=== PATIENT | male | born 1990 | race Caucasian/White ===

== ENCOUNTER 2020-04-13 09:26 | Emergency (ER) | payer SELFPAY ==
[2020-04-13 09:42] VITALS: BP 110/71; PULSE 62; RESP 16; TEMP 36.7; O2SAT 99; BMI 21.7
[2020-04-13 09:51] VITALS: BP 110/71; PULSE 62; RESP 16; O2SAT 99
--- NOTE | 2020-04-13 10:05 | ED_ITS ---
HPI - Extremity Problem General: Chief complaint: Extremity Problem,Nontraumatic Stated complaint: HAND AND RIGHT SHOULDER PAIN Time Seen by Provider: 04/13/20 09:32 History of Present Illness: HPI Narrative: Patient presents to the ER with multiple minor complaints. Patient states for a long period of time he has had pain with occasional shocklike tingling to both hands and wrists. MD Complaint: extremity pain and joint pain Onset (ago): month(s) Pain Consistency: intermittent Location: left, right and upper extremity Review of Systems General: Reports: 10 or more systems reviewed and unremarkable except in HPI and below PFSH ED PFSH: Social History Smoking and tobacco status: current every day smoker Physical Exam Const: COMMON NORMALS: no acute distress, average body habitus, alert and well nourished EXAM LIMITATIONS: altered mental status GENERAL APPEARANCE: cooperative and comfortable; not in distress and not ill appearing HENMT: COMMON NORMALS: normocephalic, atraumatic, hearing grossly normal bilaterally, external ears normal, EAC's normal, TM's normal bilaterally, Normal external nose present, Normal nasal mucous membranes and turbinates present, moist oral mucous membranes, oropharynx normal, dentition normal and gingiva normal HEAD & SCALP: normocephalic and atraumatic NOSE: Normal external nose present and Normal nasal mucous membranes and turbinates present EXTERNAL EAR: Yes external ears normal EXTERNAL AUDITORY CANAL: EAC's normal TYMPANIC MEMBRANE: TM's normal bilaterally Eye: COMMON NORMALS: Equal, round and reactive pupils present, EOMs intact bilaterally, conjunctivae normal, no scleral icterus, no papilledema, normal visual wayne by confrontation and fundi normal bilaterally CONJUNCTIVA: Yes conjunctivae normal PUPIL: Yes Equal, round and reactive pupils present DIRECT OPHTHALMOSCOPY: Yes no papilledema and Yes fundi normal bilaterally Neck/C-Spine: COMMON NORMALS: full ROM, no lymphadenopathy, supple, no meningeal signs, no JVD, Thyroid normal and No carotid bruits THYROID: Thyroid normal Chest: COMMONS NORMALS: normal inspection of the chest and normal palpation of entire chest wall Resp: COMMON NORMALS: normal respiratory effort, No retractions, No use of accessory muscles, clear to auscultation bilaterally and percussion normal AUSCULTATION: clear to auscultation bilaterally PERCUSSION: percussion normal Cardio: COMMON NORMALS: no JVD, regular rate, regular rhythm, S1 normal heart sound present, S2 normal heart sound present, No gallops present (Cardio), No clicks present (Cardio), No murmurs present (Cardio), No rub (Cardio) and Peripheral pulses 2+ throughout RATE: regular rate RHYTHM: regular rhythm HEART SOUNDS: S1 normal heart sound present and S2 normal heart sound present PERIPHERAL PULSES: Peripheral pulses 2+ throughout GI: COMMON NORMALS: Normal to inspection, nondistended, normoactive bowel sounds present, Soft to palpation, non-tender, No hepatosplenomegaly present, no masses and no bruits PALPATION: Yes Soft to palpation and Yes No hepatosplenomegaly present Back/Pelvis: COMMON NORMALS: thoracic and lumbar spine normal to inspection, no thoracic nor lumbar tenderness, thoraco-lumbar ROM normal and straight leg raise negative bilaterally Extremity: COMMON NORMALS: normal to inspection, full ROM, capillary refill normal, no joint enlargement, no clubbing, cyanosis or edema, no calf tenderness and no pedal edema Neuro: SENSORIUM/ORIENTATION: Yes alert and Yes somnolent MENINGEAL SIGNS: Yes no meningeal signs Skin: COMMON NORMALS: no rashes or lesions noted, no wounds, no jaundice and no mottling GENERAL SKIN EXAM: no rashes or lesions noted Course Vital Signs: Vital signs: Vital Signs Temperature 98.0 F 04/13/20 09:42 Pulse Rate 62 04/13/20 09:51 Respiratory Rate 16 04/13/20 09:51 Blood Pressure 110/71 04/13/20 09:51 Pulse Oximetry 99 04/13/20 09:51 Discharge Plan Discharge Patient Disposition: Home, Self-Care Clinical Impression: Carpal tunnel syndrome Qualifiers: Laterality: bilateral Qualified Code(s): G56.03 - Carpal tunnel syndrome, bilateral upper limbs Condition: Stable Prescriptions: No Action Tylenol Extra Strength 500 mg Tablet 1,500 mg PO PRN RF: 0 Discharge Orders: Discharge Order (Routine); Ordered 04/13/20 Ordered By: Андрей Stanley Coding Level of Care Code ED Metal Tube Cutter for Chg Fwd Exam Comprehensive
== END 2020-04-13 10:22 | disposition home or self-care (01) ==
PROVIDERS: Emergency Provider Family Medicine
DX: G56.03 Carpal tunnel syndrome, bilateral upper limbs (principal); F17.210 Nicotine dependence, cigarettes, uncomplicated
CPT/HCPCS: 12345; 99281

== ENCOUNTER 2020-09-28 03:50 | Emergency (ER) | payer SELFPAY ==
[2020-09-28 03:54] VITALS: BP 139/83; PULSE 62; RESP 16; TEMP 36.5; O2SAT 100; BMI 21.7
--- NOTE | 2020-09-28 04:13 | ED_ITS ---
HPI - Extremity Problem General: Chief complaint: Extremity Injury, Upper Stated complaint: lt hand pain Time Seen by Provider: 09/28/20 04:01 History of Present Illness: HPI Narrative: This patient is a 30 year old male presenting with left hand pain. He is left handed and works at a [employer] He doesn't recall any injury. He has been having pain for 3 or 4 days - worse at night. This morning the pain woke him up at 3 am and he hasn't been able to go back to sleep. He has been taking advil without relief. The pain in a burning type pain and he feels it around the area of the middle of the second metacarpal bone. He also has numbness in his entire hand and forearm - with shooting pains up to his shoulder. No specific movement or position worsens the pain. MD Complaint: extremity pain Onset (ago): day(s) (4) Pain Consistency: constant Location: left Quality: burning, aching and sharp Radiation: proximal Relieving factors: nothing Exacerbating factors: nothing Associated symptoms: Reports no associated symptoms; Deny chest pain Review of Systems Card: Denies: chest pain Resp: Denies: dyspnea or productive cough Neuro: Reports: numbness in extremities; Denies: headache(s) PFS ED PFSH: Social History Smoking and tobacco status: current every day smoker Physical Exam Const: COMMON NORMALS: no acute distress, patient oriented x3, no limitations and alert GENERAL APPEARANCE: cooperative and comfortable HENMT: HEAD & SCALP: normal to inspection FACE & SINUS: normal facial exam Eye: GENERAL EYE: appearance normal, both eyes and all related structures Neck/C-Spine: COMMON NORMALS: supple, no meningeal signs and no JVD Chest: COMMONS NORMALS: normal inspection of the chest Resp: COMMON NORMALS: normal respiratory effort and No use of accessory muscles Cardio: COMMON NORMALS: no JVD Back/Pelvis: COMMON NORMALS: thoracic and lumbar spine normal to inspection Extremity: COMMON NORMALS: normal to inspection NARRATIVE EXTREMITY EXAM: left hand normal to inspection - FROM, neuro intact, pulses intact Neuro: COMMON NORMALS: patient oriented x3, moves all extremities, no focal motor deficits and no sensory deficits noted SENSORIUM/ORIENTATION: Yes alert MENINGEAL SIGNS: Yes no meningeal signs Psych: COMMON NORMALS: mental status grossly normal, cooperative and normal affect Skin: COMMON NORMALS: no rashes or lesions noted and turgor normal GENERAL SKIN EXAM: no rashes or lesions noted and turgor normal Course ED course: No clear injury to the hand. I suspect this could be a cervical radiculopathy and I will treat him with some steroids. We will also give him a short course of tramadol for pain. I have asked case management to help him with primary care follow-up. Vital Signs: Vital signs: Vital Signs Temperature 97.7 F 09/28/20 03:54 Pulse Rate 69 09/28/20 04:58 Respiratory Rate 16 09/28/20 03:54 Blood Pressure 124/85 09/28/20 04:58 Pulse Oximetry 100 09/28/20 04:58 Discharge Plan Discharge Patient Disposition: Home Clinical Impression: Hand pain, left Condition: Stable Prescriptions: New Medrol (Wilber) 4 mg tablets,dose pack See Rx Instructions .ROUTE .COMPLEX Qty: 21 RF: 0 tramadol 50 mg tablet 50 mg PO Q6H PRN (Reason: pain) Qty: 10 RF: 0 No Action Tylenol Extra Strength 500 mg Tablet 1,500 mg PO PRN RF: 0 Discharge Orders: Discharge Order (Routine); Ordered 09/28/20 Ordered By: Tana Baldwin Discharge Diet: Usual diet Discharge Activity: Resume usual activity Patient Instructions: Cervical Radiculopathy (ED) Activity Restrictions/Additional Instructions: Follow up with a primary care provider for further evaluation and management of your pain. Return to the ED if new or worse symptoms. Coding Level of Care Code ED Contractor General Building for Meliza Molina Exam Comprehensive
--- NOTE | 2020-09-28 04:13 | XRR_ITS ---
PROCEDURE INFORMATION: Exam: XR Left Hand Exam date and time: 09/28/2020 4:22 AM Age: 30 years old Clinical indication: Pain; Hand; Left TECHNIQUE: Imaging protocol: XR Left hand. Views: 3 or more views. COMPARISON: CR Hand 3 views, LEFT* [id number] 10/06/2019 8:48 PM FINDINGS: Bones/joints: No acute fracture or dislocation is seen. A chronic fracture of the neck of the 5th metacarpal is present.. Soft tissues: Normal. XR/XR hand LT min 3V* [id number] IMPRESSION: No acute findings.
[2020-09-28 04:33] VITALS: BP 124/85; PULSE 62; PULSE 68; O2SAT 99
[2020-09-28] MEDS: predniSONE 20 mg Tablet 40 MG PO (04:57)
[2020-09-28] MEDS: acetaminophen 500 mg Tablet 1000 MG PO (04:57)
[2020-09-28 04:58] VITALS: BP 124/85; PULSE 69; O2SAT 100
--- NOTE | 2020-10-03 14:49 | DCPLANNER ---
market research manager had message to speak with patient about getting established with a primary care physician. market research manager called phone number [phone], unable to speak with patient at this time, a voicemail was left for patient to return case worker phone call.
== END 2020-09-28 04:59 | disposition home or self-care (01) ==
PROVIDERS: Emergency Provider Emergency Medicine
DX: M79.642 Pain in left hand (principal); F17.210 Nicotine dependence, cigarettes, uncomplicated
CPT/HCPCS: 12345; 73130; 99281; 99283; J7512

== ENCOUNTER 2021-02-26 07:08 | Emergency (ER) | payer SELFPAY ==
[2021-02-26 07:10] VITALS: BP 136/88; PULSE 67; RESP 18; TEMP 36.7; O2SAT 100; BMI 21.7
--- NOTE | 2021-02-26 07:16 | ED_ITS ---
Documented by User: JESSICA Harrison 02/26/21 08:51 HPI - Skin/Abscess/Foreign Bdy General: Chief complaint: Skin/Abscess/Foreign Body Stated complaint: Cyst/Growth Time Seen by Provider: 02/26/21 07:09 Source: patient Mode of arrival: ambulatory Limitations: no limitations History of Present Illness: HPI narrative: Patient is a 30-year-old male who presents to ED today with complaints of a lump near his left testicle/scrotum. He states the lump has been present for about two years and is normally the size of the tip of his pinky finger and non-painful however over the last few days lesion has gotten much larger, is now red, and is becoming uncomfortable. No penile discharge or dysuria. He has not noticed any testicular swelling or pain. No rash/skin lesions. Patient is and monogamous with his . He has no concerns for STDs. MD complaint: other (lump) Onset (ago): day(s) Location: genitals Severity: mild Relieving factors: none Exacerbating factors: none Context: none Associated symptoms: Reports no associated symptoms; Deny chills, fever(s), nausea or vomiting Treatments prior to arrival: none Review of Systems Const: Denies: fever(s), chills, body aches, fatigue or malaise GI: Denies: abdominal pain, nausea or vomiting : Reports: testicular mass; Denies: flank pain, difficulty urinating, dysuria, urinary frequency, urinary urgency, urinary hesitancy, hematuria, penile discharge or testicular pain Musc: Denies: back pain Skin/Breast: Denies: rash PFS ED PFSH: Social History Smoking and tobacco status: current every day smoker Physical Exam Const: COMMON NORMALS: no acute distress, average body habitus, patient oriented x3, no limitations, healthy appearing, alert and well nourished GI: COMMON NORMALS: Normal to inspection, nondistended, normoactive bowel sounds present, Soft to palpation, non-tender, No hepatosplenomegaly present and no masses PALPATION: Yes Soft to palpation and Yes No hepatosplenomegaly present : PENIS: normal penis MEATUS: meatus normal SCROTUM: Yes testes descended bilaterally TESTES: Yes testicular lie normal Neuro: COMMON NORMALS: patient oriented x3 SENSORIUM/ORIENTATION: Yes alert Course Vital Signs: Vital signs: Vital Signs Temperature 98.1 F 02/26/21 07:10 Pulse Rate 74 02/26/21 07:25 Respiratory Rate 18 02/26/21 07:10 Blood Pressure 131/78 02/26/21 07:25 Pulse Oximetry 99 02/26/21 07:25 MDM - Skin/Abscess/Foreign Bdy MDM Narrative: Medical decision making narrative: Pts US does show a fluid collection that radiologist felt was possibly an abscess however based on patient's history I feel this is probably unlikely. Area has been present for over two years however has acutely worsened. Clinically fluid collection is lateral to his epididymis-I spoke to Dr. Carter and she felt this was just being displaced by the fluid collection and did not appear to be directly involved. At this point I am hesitant about performing any type of procedure to the fluid collection based on its chronicity. I have spoken to Dr. Walter who agrees that he would not attempt any form of I&D. We agreed that we will cover patient with IM Rocephin and place on Doxycycline and will get him a follow up appointment with Dr. Stovall. Return to ED precautions given. Patient is not tachycardic or febrile. Imaging Data^: US testicular : Radiologist's impression: [address] [place] [address] Ultrasound Report Signed Patient: Jimmy Lazcano Unit #: [id number] : 1990 Age/Sex: 30 / M ADM Date: 02/26/21 Loc: ER Room/Bed: Attending Dr: Ordering Provider/Ordering MD: Natasha Quevedo Date of Service: 02/26/21 Procedure(s): US scrotum 75747 Accession Number(s): [id number] Report Number: [id number] WS: [id number] TESTICULAR ULTRASOUND HISTORY: lump/mass COMPARISON: None available. TECHNIQUE: Real-time and color Doppler imaging or utilized to perform a testicular ultrasound. Right testicle: 4.2 cm x 2.5 cm x 1.9 cm. Normal size and echogenicity. No mass or torsion. Normal color Doppler is present throughout. Systolic and diastolic velocities are both present. No significant hydrocele. Right epididymis: Normal epididymis with no increased vascularity. Left testicle: 3.4 cm x 2.2 cm x 1.8 cm. Normal size and echogenicity. No mass or torsion. Normal color Doppler is present throughout. Systolic and diastolic velocities are both present. No significant hydrocele. Left epididymis: Epididymis is very enlarged. Adjacent to the epididymis is a complex collection with marked increased vascularity measuring 2.0 x 2.5 x 1.3 cm. This corresponds to the palpable abnormality. The epididymis is closely associated with this inflammatory collection and is being slightly displaced. US/ scrotum [id number] IMPRESSION: 1. LEFT scrotal wall abscess versus LEFT epididymal abscess. Abscess collection measures 2.0 x 2.5 x 1.3 cm and corresponds to the palpable abnormality. 2. No orchitis. Dictated By: Annemarie Carter DO Signed By: Annemarie Carter DO Signed Date/Time: 02/26/21818 DD/ 8 Discharge Plan Discharge Patient Disposition: Home Clinical Impression: Lump in scrotum Condition: Stable Prescriptions: New doxycycline monohydrate 100 mg capsule 100 mg PO Q12H 10 Days Qty: 20 RF: 0 No Action Tylenol Extra Strength 500 mg Tablet 1,500 mg PO PRN RF: 0 Medrol (Wilber) 4 mg tablets,dose pack See Rx Instructions .ROUTE .COMPLEX Qty: 21 RF: 0 tramadol 50 mg tablet 50 mg PO Q6H PRN (Reason: pain) Qty: 10 RF: 0 Discharge Orders: Discharge ED (Routine); Ordered 02/26/21 Ordered By: Natasha Quevedo Referrals: Owen Stovall MD [Physician] - Activity Restrictions/Additional Instructions: Fill your antibiotics immediately and get started taking them. Case management should contact you shortly to set you up with a follow-up appointment with Dr. Stovall. Return to the emergency department for worsening swelling, pain, spreading redness/warmth, fevers, or any other concerns you may have. Coding Level of Care Code ED Upholsterer Inside for Chg Fwd Exam Expanded Problem Focused Documented by User: Isacc Walter DO 02/26/21 10:18 HPI - Skin/Abscess/Foreign Bdy General: Chief complaint: Skin/Abscess/Foreign Body Stated complaint: Cyst/Growth Time Seen by Provider: 02/26/21 07:09 PFSH ED PFSH: Social History Smoking and tobacco status: current every day smoker Course Vital Signs: Vital signs: Vital Signs Temperature 98.1 F 02/26/21 07:10 Pulse Rate 74 02/26/21 07:25 Respiratory Rate 18 02/26/21 07:10 Blood Pressure 131/78 02/26/21 07:25 Pulse Oximetry 99 02/26/21 07:25 MDM - Skin/Abscess/Foreign Bdy MDM Narrative: Medical decision making narrative: Reviewed and discussed case with JESSICA Harrison agree with assessment and plan. Discharge Plan Discharge Patient Disposition: Home Clinical Impression: Lump in scrotum Condition: Stable Prescriptions: New doxycycline monohydrate 100 mg capsule 100 mg PO Q12H 10 Days Qty: 20 RF: 0 No Action Tylenol Extra Strength 500 mg Tablet 1,500 mg PO PRN RF: 0 Medrol (Wilber) 4 mg tablets,dose pack See Rx Instructions .ROUTE .COMPLEX Qty: 21 RF: 0 tramadol 50 mg tablet 50 mg PO Q6H PRN (Reason: pain) Qty: 10 RF: 0 Discharge Orders: Discharge ED (Routine); Ordered 02/26/21 Ordered By: Natasha Quevedo Referrals: Owen Stovall MD [Physician] - Activity Restrictions/Additional Instructions: Fill your antibiotics immediately and get started taking them. Case management should contact you shortly to set you up with a follow-up appointment with Dr. Stovall. Return to the emergency department for worsening swelling, pain, spreading redness/warmth, fevers, or any other concerns you may have. Coding Level of Care Code ED Upholsterer Inside for Chg Fwd Exam Expanded Problem Focused
--- NOTE | 2021-02-26 07:23 | US_ITS ---
WS: [id number] TESTICULAR ULTRASOUND HISTORY: lump/mass COMPARISON: None available. TECHNIQUE: Real-time and color Doppler imaging or utilized to perform a testicular ultrasound. Right testicle: 4.2 cm x 2.5 cm x 1.9 cm. Normal size and echogenicity. No mass or torsion. Normal color Doppler is present throughout. Systolic and diastolic velocities are both present. No significant hydrocele. Right epididymis: Normal epididymis with no increased vascularity. Left testicle: 3.4 cm x 2.2 cm x 1.8 cm. Normal size and echogenicity. No mass or torsion. Normal color Doppler is present throughout. Systolic and diastolic velocities are both present. No significant hydrocele. Left epididymis: Epididymis is very enlarged. Adjacent to the epididymis is a complex collection with marked increased vascularity measuring 2.0 x 2.5 x 1.3 cm. This corresponds to the palpable abnormal ity. The epididymis is closely associated with this inflammatory collection and is being slightly dis placed. US/US scrotum [id number] IMPRESSION: 1. LEFT scrotal wall abscess versus LEFT epididymal abscess. Abscess collectio n measures 2.0 x 2.5 x 1.3 cm and corresponds to the palpable abnormality. 2. No orchitis.
[2021-02-26 07:25] VITALS: BP 131/78; PULSE 74; O2SAT 99
--- NOTE | 2021-02-26 09:58 | DCPLANNER ---
manager social was asked to schedule a follow up appointment for patient with Dr. Stovall. manager social called the office of Dr. Stovall, spoke with Kaelyn, gave clinic patients information. manager social was told that patients information would be printed and reviewed. Clinic will call patient with appointment information.
--- NOTE | 2021-02-27 08:16 | DCPLANNER ---
Patient has a follow up appointment scheduled for Saturday, February 27, [address] at 9:[address] Stovall. Clinic will call patient with appointment information.
--- NOTE | 2021-04-19 14:42 | DCPLANNER ---
Patient had a follow up appointment scheduled for 02.27.[address] Stovall - patient did attend appointment.
== END 2021-02-26 09:25 | disposition home or self-care (01) ==
PROVIDERS: Emergency Provider Physician Assistant
DX: N50.9 Disorder of male genital organs, unspecified (principal); F17.210 Nicotine dependence, cigarettes, uncomplicated
CPT/HCPCS: 76870; 96372; 99283; J0696

== ENCOUNTER 2021-08-28 07:16 | Emergency (ER) | payer SELFPAY ==
--- NOTE | 2021-08-28 07:18 | XR_ITS ---
WS: [id number] Exam: XR hand LT min 3V* [id number] Date/Time of Exam: 08/28/2021 7:27 AM Reason For Exam: index finger injury comparison 09/28/2020 No acute fracture or dislocation. Old fracture deformity of the distal fifth metacarpal. No soft tiss ue foreign bodies are visualized. Mild soft tissue swelling of the index finger. XR/XR hand LT min 3V* [id number] IMPRESSION: 1. No fracture or dislocation. 2. Mild soft tissue swelling of the index finger.
[2021-08-28 07:34] VITALS: BP 123/84; PULSE 86; RESP 17; TEMP 37.1; O2SAT 99; BMI 21.7
--- NOTE | 2021-08-28 07:35 | W.ED.UPPEXIN ---
HPI - Extremity Injury (Upper) General: Chief Complaint: Extremity Injury, Upper Stated Complaint: L INDEX FINGER INJURY Time Seen by Provider: 08/28/21 07:26 History of Present Illness: HPI narrative: Patient is a 31-year-old male who comes to the ED with a left index finger injury. complaint: injury to: left and finger (index) Onset (ago): day(s) (yesterday-late afternoon) Other injuries: none Place: work Severity: moderate Relieving factors: rest Exacerbating factors: movement of extremity Context: crush (Piece of lumber fell crushing patient's finger between lumbar and table.) Associated symptoms: Denies neck pain or weakness in extremities Review of Systems Const: Denies: fever(s), chills or fatigue Eyes: Denies: change in vision or eye discomfort ENMT: Denies: throat pain, odynophagia, nasal discharge or nasal congestion Card: Denies: chest pain, palpitations, edema, swelling of feet/ankles, dyspnea on exertion or orthopnea Resp: Denies: dyspnea, productive cough or non-productive cough GI: Denies: abdominal pain, nausea, vomiting, diarrhea, constipation or hematochezia : Denies: flank pain, difficulty urinating, dysuria or hematuria Musc: Reports: extremity pain (left hand index finger) and extremity swelling (left hand-index finger); Denies: neck pain or back pain Skin/Breast: Denies: rash or new lesions Neuro: Denies: headache(s), numbness in extremities or weakness in extremities PFS ED PFSH: Medical History Scrotal wall abscess Family History Father Hypertension Other Diabetes Social History Smoking and tobacco status: current every day smoker Alcohol intake: current Alcohol intake frequency: holidays/special occasions only Marital status: Current occupational status: employed Physical Exam Const: COMMON NORMALS: no acute distress, patient oriented x3, healthy appearing and alert GENERAL APPEARANCE: cooperative and comfortable HENMT: COMMON NORMALS: normocephalic HEAD & SCALP: normocephalic MOUTH: Normal oral and palatal mucosa present THROAT: posterior oropharynx normal and uvula midline Neck/C-Spine: COMMON NORMALS: supple GENERAL: Yes normal visual inspection Resp: COMMON NORMALS: normal respiratory effort, No retractions, No use of accessory muscles and clear to auscultation bilaterally AUSCULTATION: clear to auscultation bilaterally Cardio: COMMON NORMALS: regular rate, regular rhythm, S1 normal heart sound present, S2 normal heart sound present, No gallops present (Cardio), No clicks present (Cardio), No murmurs present (Cardio) and Peripheral pulses 2+ throughout RATE: regular rate RHYTHM: regular rhythm HEART SOUNDS: S1 normal heart sound present and S2 normal heart sound present PERIPHERAL PULSES: Peripheral pulses 2+ throughout GI: COMMON NORMALS: Normal to inspection, nondistended, normoactive bowel sounds present, Soft to palpation, non-tender and no masses PALPATION: Yes Soft to palpation : COMMON NORMALS: Yes no CVA tenderness BLADDER/KIDNEY EXAM: Yes no CVA tenderness Back/Pelvis: COMMON NORMALS: no CVA tenderness Extremity: LEFT UPPER EXTREMITY: Yes hand & digits (Index [id number] nailbed injury) Left hand and digits: Yes inspection (Swelling around PIP joint of index finger. No deformity noted), Yes palpation (Tenderness over PIP joint of index finger), Yes ROM (Limited due to pain) and Yes neurovascular exam (Intact) Neuro: COMMON NORMALS: patient oriented x3 and moves all extremities SENSORIUM/ORIENTATION: Yes alert Skin: GENERAL SKIN EXAM: dry skin Course Vital Signs: Vital signs: Vital Signs Temperature 98.7 F 08/28/21 08:45 Pulse Rate 71 08/28/21 08:45 Respiratory Rate 17 08/28/21 08:45 Blood Pressure 109/72 08/28/21 08:45 Pulse Oximetry 99 08/28/21 08:45 MDM - Extremity Injury (Upper) MDM Narrative: Medical decision making narrative: Patient is a 31-year-old male who comes to the ED with left hand index finger injury. No visible deformity noted. Patient does have some swelling and tenderness around the PIP joint of left hand index finger. No nail damage seen. Neurovascular intact. X-ray of left hand shows index finger proximal and middle phalanx nondisplaced fracture. Patient was put in a finger splint discharged home. I placed order with case management for patient to follow-up with orthopedic for evaluation of finger fracture. Return to ED precautions given. Patient understood and agree with plan. Imaging Data^: Xray Ortho: Attestation: I personally reviewed and interpreted this imaging study as follows: My impression: Left hand x-ray?index finger proximal head middle phalanx nondisplaced fracture. Discharge Plan Discharge Patient Disposition: Home Clinical Impression: Fracture of finger of left hand Qualifiers: Encounter type: initial encounter Finger: index finger Fracture type: closed Phalanx: middle Fracture alignment: nondisplaced Qualified Code(s): S62.651A - Nondisplaced fracture of middle phalanx of left index finger, initial encounter for closed fracture Condition: Stable Prescriptions: No Action sulfamethoxazole-trimethoprim 800-160 mg tablet 1 tab PO BID Qty: 20 RF: 0 Tylenol Extra Strength 500 mg Tablet 1,500 mg PO PRN RF: 0 Discharge Orders: Discharge ED (Routine); Ordered 08/28/21 Ordered By: Reagan Mckeon Discharge Diet: Regular Discharge Activity: Limit activity as instructed Patient Instructions: Finger Fracture (ED), Opioid Safety Activity Restrictions/Additional Instructions: Follow-up with medical provider as directed. Case management will be contacting you in the next several days to set up an appoint with orthopedic doctor. Take medications as prescribed. Wear finger splint and limit activity until cleared by orthopedic doctor. Return to the ER or your medical provider if condition worsens. Please read and understand discharge instructions. Thank you for choosing [facility] for your healthcare needs today. Please realize this is an emergency room and that we are providing you with a medical screening exam and this may not be complete and all inclusive of all the testing and or work up that you may need to determine your ailment or severity of your illness. It is very important that you follow up as instructed or that you return to the Emergency Department should you have concerns or if your condition changes or worsens in any way. Stand Alone Forms: Work/School Release Coding Level of Care Code ED Floor Representative for Meliza Molina Exam Comprehensive
[2021-08-28 07:47] VITALS: BP 129/79; PULSE 75; RESP 17; TEMP 36.7; O2SAT 99
[2021-08-28] MEDS: ketorolac 60 mg/2 mL INJ IM (07:50)
--- NOTE | 2021-08-28 07:52 | PC.NURSE ---
Pt on shot time until 812.
[2021-08-28 08:45] VITALS: BP 109/72; PULSE 71; RESP 17; TEMP 37.1; O2SAT 99
--- NOTE | 2021-08-28 10:35 | PC.SOCIAL ---
Notified Chen of Ortho referral per ED provider Dr Mckeon. She will review and call patient with appt.
--- NOTE | 2021-09-05 13:47 | DCPLANNER ---
Patient had a follow up appointment scheduled for Tuesday, September 07, 2021 at 10:[address] Mosquera. Clinic will call patient with appointment information.
--- NOTE | 2021-09-13 13:56 | DCPLANNER ---
Patient had a follow up appointment scheduled for 09.07.21 with ortho - patient did not attend appointment.
== END 2021-08-28 08:48 | disposition home or self-care (01) ==
PROVIDERS: Emergency Provider Physician Assistant
DX: S62.651A Nondisplaced fracture of middle phalanx of left index finger, initial encounter for closed fracture (principal); W20.8XXA Other cause of strike by thrown, projected or falling object, initial encounter; Y92.69 Other specified industrial and construction area as the place of occurrence of the external cause; Y99.0 Civilian activity done for income or pay; F17.210 Nicotine dependence, cigarettes, uncomplicated
CPT/HCPCS: 73130; 96372; 99283; J1885

== ENCOUNTER 2021-10-18 14:54 | Inpatient (IN) | payer SELFPAY ==
[2021-10-18 14:58] VITALS: BP 146/69; PULSE 80; RESP 16; TEMP 36.9; O2SAT 95; BMI 21.7
--- NOTE | 2021-10-18 15:01 | ECG_ITS ---
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
--- NOTE | 2021-10-18 15:04 | ED_ITS ---
HPI - General Adult General: Chief complaint: Overdose Stated complaint: MED OVERDOSE Time Seen by Provider: 10/18/21 14:55 History of Present Illness: HPI narrative: HPI: [31]yo patient w/ hx of depression BIBA for intentional overdose of trazedone. Patient tells me he was feeling sad and took 10-12 tablets of trazadone with expiration of 2017 about 45mins RN CONCURRENT REVIEW. or On arrival, the patient is AAOx3 and cooperative with my evaluation. No focal complaints of chest pain, shortness of breath, palpitations, N/V, focal GI/ complaints. Curently denies any HI. No complaints of hallucinations. Onset: acute Duration: ongoing Location: home Severity: severe Review of Systems Narrative: Constitutional: No fever, no chills. HEENT: No vision changes CV: No chest pain, no palpitations PULM: no cough, no dyspnea. GI: No abdominal pain, no N/V/D. : No dysuria MSKEL: No muscle pain SKIN: No new rashes, no lesions. NEURO: No headache, no focal weakness. HEME: No visible bruises PSYCH: Normal mood, +SI PFSH ED PFSH: Medical History Scrotal wall abscess Family History Father Hypertension Other Diabetes Social History Smoking and tobacco status: current every day smoker Alcohol intake: current Alcohol intake frequency: holidays/special occasions only Marital status: Current occupational status: employed Physical Exam Narrative: EXAM NARRATIVE: Head: Atraumatic Eyes: PERRL, conjunctiva without injection ENT: Mucous membrane moist NECK: Supple, ROM intact LUNGS: LCTAB, no crackles/rhonchi CV: RRR ABDOMEN: Soft, nontender in all quadrants EXTREMITY: Normal ROM SKIN: No rash or erythema NEURO: Awake and alert, no focal motor deficits PSYCH: Normal mood and affect Course Vital Signs: Vital signs: Vital Signs Temperature 98.5 F 10/18/21 14:58 Pulse Rate 72 10/18/21 17:13 Respiratory Rate 14 10/18/21 17:13 Blood Pressure 134/65 10/18/21 17:13 Pulse Oximetry 96 10/18/21 17:13 MDM - General Adult MDM Narrative: Medical decision making narrative: [31]yo patient w/ hx of depression presenting for trazadone overdose. HDS, exam within normal limit Thoughts are linear and organized, and the patient has no AH/VH, or HI. Clinically the patient displays no overt toxidrome; they are well appearing, with low suspicion for toxic ingestion given history and exam. Symptoms unlikely 2/2 anemia, hypothyroidism, infection, or ICH. Workup: CBC, CMP, Lipase, salicylate/tylenol, USD Lab findings: wnl, +marijuana [3:05pm] On reassessment, labs and workup wnl. Patient is hemodynamically stable with no acute medical complaints. Case discussed with psychiatric provider Dr. Braun at [facility] psych inpatient with recommendation for admission. Tablets of trazodone overdose, case was discussed with poison center who reported that patient would have had a peak of 1 to 2 hours. Patient was observed emergency room. EKG not showing any QT prolongation. No other focal findings including seizure at this time. He is stable for admission to NPU. Disposition: Psych Lab Data: Labs: Lab Results 10/18/21 10/18/21 10/18/21 15:33 15:33 16:07 WBC 7.8 10^3/uL 10^3/ uL (4.0-10.0) RBC 4.59 10^6/uL 10^6 /uL (4.1-5.3) Hgb 15.6 g/dL g/dL (11.7-16.6) Hct 44.5 % % (42.0-52.0) MCV 96.9 fl H fl (80-94) MCH 34.0 pg pg (28.0-34.0) MCHC 35.1 g/dL g/dL (30.0-36.0) RDW 11.8 % L % (12.1-15.1) Plt Count 199 10^3/cmm 10^3 /cmm (130-400) MPV 11.4 fL H fL (7.4-10.4) Neut % (Auto) 66.9 % % Lymph % (Auto) 24.7 % % [place] % (Auto) 6.3 % % Eos % (Auto) 1.5 % % Baso % (Auto) 0.5 % % Neut # (Auto) 5.20 10^3/uL 10^3 /uL (1.8-7.7) Lymph # (Auto) 1.9 10^3/uL 10^3/ uL (0.8-4.8) [place] # (Auto) 0.5 10^3/uL 10^3/ uL (0.2-0.9) Eos # (Auto) 0.1 10^3/uL 10^3/ uL (0.0-0.8) Baso # (Auto) 0.0 10^3/uL 10^3/ uL (0.0-0.1) Nucleated RBC % (a uto) 0 % % Nucleated RBCs # 0.0 /100WBC /100W BC Sodium 139 mmol/L mmol/L (136-145) Potassium 3.6 mmol/L mmol/L (3.5-5.1) Chloride 103 mmol/L mmol/L (98-107) Carbon Dioxide 22 mmol/L mmol/L (22-29) Anion Gap 17.6 (5-19) BUN 7 mg/dL mg/dL (6-20) Creatinine 0.8 mg/dL mg/dL (0.7-1.2) GFR Calculation 112.0 mL/min mL/m in (90-130) Glucose 101 mg/dL mg/dL (65-115) Calculated Osmolal ity 286 mOsm/kg mOsm/ kg (285-295) Calcium 8.8 mg/dL mg/dL (8.5-10.5) Salicylates < 0.3 mg/dL L mg/ dL (3-10) Urine Opiates Scre en Negative ng/mL ng /mL (Negative) Acetaminophen < 5.0 ug/mL L ug/ mL (10-30) Ur Barbiturates Sc reen Negative ng/mL ng /mL (Negative) Ur Phencyclidine S crn Negative ng/mL ng /mL (Negative) Ur Amphetamines Sc reen Negative ng/mL ng /mL (Negative) U Benzodiazepines Scrn Negative ng/mL ng /mL (Negative) Urine Cocaine Scre en Negative ng/mL ng /mL (Negative) U Marijuana (THC) Screen Positive ng/mL H ng/mL (Negative) Discharge Plan Discharge Patient Disposition: Admitted As Inpatient Clinical Impression: Depression, Suicidal ideations Condition: Stable Coding Level of Care Code ED Therapist Asst for Meliza Molina
--- NOTE | 2021-10-18 15:40 | PC.NURSE ---
Poison control contact Spoke to Rohini, Pharmacist from [place] [facility]. She stated that peak release time for Trazadone is 1-2 hours. Since medicine in 2017 she was not sure of the potency of the medication. She stated care is mostly supportive and to possibly expect headache, drowsiness, N/V from pt. She recommended doing an EKG, and blood tests.
[2021-10-18 15:41] LABS: Basophils % 0.5 %; Eosinophils # 0.1 10^3/uL (0.0-0.8); Eosinophils % 1.5 %; Hematocrit 44.5 % (42.0-52.0); Hemoglobin 15.6 g/dL (11.7-16.6); Lymphocytes # 1.9 10^3/uL (0.8-4.8); Lymphocytes % 24.7 %; Mean Corpuscular HGB Conc 35.1 g/dL (30.0-36.0); Mean Corpuscular Volume 96.9 fl (80-94); Mean Platelet Volume 11.4 fL (7.4-10.4); Monocytes # 0.5 10^3/uL (0.2-0.9); Monocytes % 6.3 %; Neutrophils % 66.9 %; Nucleated Red Blood Cells % 0 %; Platelet Count 199 10^3/cmm (130-400); Red Blood Count 4.59 10^6/uL (4.1-5.3); Red Cell Distribution Width 11.8 % (12.1-15.1); White Blood Count 7.8 10^3/uL (4.0-10.0)
[2021-10-18 16:13] LABS: Anion Gap 17.6 (5-19); Blood Urea Nitrogen 7 mg/dL (6-20); Calcium 8.8 mg/dL (8.5-10.5); Carbon Dioxide 22 mmol/L (22-29); Chloride 103 mmol/L (98-107); Glucose 101 mg/dL (65-115); Osmolality Calculated 286 mOsm/kg (285-295); Potassium 3.6 mmol/L (3.5-5.1); Sodium 139 mmol/L (136-145)
[2021-10-18 16:23] LABS: Acetaminophen < 5.0 ug/mL (10-30); Salicylate < 0.3 mg/dL (3-10)
[2021-10-18 16:26] LABS: Amphetamines Screen Urine Negative (Negative); Barbiturates Screen Urine Negative (Negative); Benzodiazepines Screen Urine Negative (Negative); Cocaine Screen Urine Negative (Negative); Opiate Screen Urine Negative (Negative); PCP Screen Urine Negative (Negative); THC Screen Urine Positive (Negative)
[2021-10-18 17:13] VITALS: BP 134/65; PULSE 72; RESP 14; O2SAT 96
[2021-10-18 20:15] VITALS: BP 114/72; PULSE 67; RESP 16; O2SAT 98
[2021-10-18] MEDS: nicotine 2 mg Gum BUCCAL (21:57)
[2021-10-18 22:00] VITALS: BP 120/81; PULSE 72; RESP 16; O2SAT 99
[2021-10-19 06:00] VITALS: BP 129/84; PULSE 79; RESP 15; O2SAT 96
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
[2021-10-19] MEDS: nicotine 21 mg Patch 1 PATCH TRANSDERMA (08:03)
[2021-10-19] MEDS: acetaminophen 325 mg Tablet 650 MG PO (09:43)
[2021-10-19 14:00] VITALS: BP 103/59; PULSE 64; RESP 18; TEMP 36.7; O2SAT 96
[2021-10-19] MEDS: nicotine 2 mg Gum BUCCAL ×2 (18:50→21:38)
[2021-10-19 20:44] VITALS: BP 131/62; PULSE 73; RESP 15; TEMP 36.7; O2SAT 97
[2021-10-20] MEDS: ibuprofen 600 mg Tablet PO (00:29)
[2021-10-20] MEDS: acetaminophen 325 mg Tablet 650 MG PO ×2 (02:33→20:57)
[2021-10-20 06:00] VITALS: BP 114/75; PULSE 55; RESP 17; O2SAT 100
[2021-10-20] MEDS: nicotine 2 mg Gum BUCCAL ×2 (06:05→23:28)
[2021-10-20] MEDS: fluoxetine 20 mg Capsule PO (08:26)
[2021-10-20] MEDS: nicotine 21 mg Patch 1 PATCH TRANSDERMA (08:58)
--- NOTE | 2021-10-20 09:52 | P.NPUPN_ITS ---
Subjective NPU Subjective: Interval history: He says that he has been fine since he has been here. As it is just relationship issues that really get to him. His has bipolar disorder as well as PTSD. We discussed what bipolar disorder is. He says that she does go through significant and consistent periods of time with elevated mood and decreased need for sleep with irritability. She had not had sleep for several days when she lost her temper at him the other day and caused him to get very depressed and take the overdose of trazodone. They drive all the way to [place] to see the medical doctor that she has been seeing since she was 14 years old. Unfortunately she only takes the ADHD medication that she gives her and what other medication. She does not take everything that she prescribes. She also takes medical marijuana. He was told that that will not help the mood swings and she needs to take a mood stabilizer or an antipsychotic. If they are going to drive all the way to [place] she should be honest with her psychiatrist about what she is taking and what she is not. Also discussed the treatment of anxiety. He was told that with Prozac the dose needs to get up to about 80 mg. If that does not work I would recommend trying Lexapro. That needs to be up to 40 mg. Mental Status Exam MSE Comments: This is a 31-year-old thin male of about the stated age who is in no acute distress. He is pleasant and cooperative with the evaluation. He has very poor dentition and a full burgos. psychomotor activity normal. Speech is at a regular rate and rhythm, normal volume, good articulation, not pressured. Alert, oriented X3 Attention and concentration there are no apparent deficits but he reports very poor concentration. Memory is intact Mood is good. Affect is euthymic. Thought process is logical and goal-directed. Thought content: Denies auditory and visual hallucinations. No delusions or paranoia are noted. No current suicidal ideation, and no homicidal ideation. Fund of knowledge is normal. Insight and judgment appear to be fairly good. Impulse control is limited based on his suicide attempt Cognition: Patient Appearance: Appropriate Level of Consciousness: Awake, Alert, Appropriate and Follows Commands Patient Cognition Impaired: No Ability to Follow Directions: Good Patient Orientation (long list): Person, Place, Time, Name, Age and Birthday Comprehension Ability: No Impairment Hallucination Type: None Delusion Description: Not Present Thought Process: Appropriate Affect: Affect Description: Calm Behavior: Patient Behavior: Cooperative Speech Pattern: Clear Vitals/I&O/Wt Last Vital Signs Temp 98.1 F 10/19/21 20:44 Pulse 55 L 10/20/21 06:00 Resp 17 10/20/21 06:00 BP 114/75 10/20/21 06:00 Pulse Ox 100 10/20/21 06:00 Weight last 48 hrs Weight 74.843 kg Data NPU : 10/18/21 15:33 10/18/21 15:33 A&P Assessment and plan (1) Depression: Status: Acute Qualifiers: Active/Remission status: currently active Depression Type: major dep ressive disorder Major depression episode severity: severe Major depression recurrence: recurrent Psychotic features: without psychotic features Qualified Code(s): F33.2 - Major depressive disorder, recurrent severe without psychotic features (2) Suicidal ideations: Status: Acute (3) Anxiety disorder: Status: Acute Qualifiers: Anxiety disorder type: generalized anxiety disorder Qualified Code(s): F41.1 - Generalized anxiety disorder Additional A&P Information This is a 31-year-old man who was admitted through the emergency room after taking an overdose of about 500 mg of trazodone. Plan: 1. Continue Prozac 20 mg daily. 2. Continue every 15 minute checks for safety. 3. Encourage individual, group and milieu therapies. 4. Encourage sober living treatment after discharge at the highest level of care to which he is willing to commit. 5. We will monitor for safety for himself in the community prior to discharge. Involuntary Hold Information 96 Hour Hold: 96 Hour Involuntary Admission: Yes 96 Hour Hold Ending Date: 10/24/21 96 Hour Hold Ending Time: 16:30 Attestations NPU Medical Necessity Statement*: Inpatient hospitalization is medically necessary and the clinically appropriate intervention at this time. We will initiate medications and make changes as indicated. Coding Level of Care Code Acute Wastewater Treatment Operator for Meliza Molina Diagnoses Depression F33.2 Active/Remission status: currently active Depression Type: major depressive disorder Major depression episode severity: severe Major depression recurrence: recurrent Psychotic features: without psychotic features Suicidal ideations R45.851 Anxiety disorder F41.1 Anxiety disorder type: generalized anxiety disorder
[2021-10-20 14:00] VITALS: BP 116/70; PULSE 62; RESP 18; TEMP 36.5; O2SAT 100
[2021-10-20 20:35] VITALS: BP 136/82; PULSE 59; RESP 17; O2SAT 98
[2021-10-20 21:45] LABS: Glucose Point of Care 77 mg/dL (70-110)
--- NOTE | 2021-10-20 22:16 | PC.NURSE ---
Patient requested towels and hygiene box to soak in bath tub due to pain in muscles and joints.
[2021-10-21] MEDS: ibuprofen 600 mg Tablet PO (00:27)
[2021-10-21] MEDS: acetaminophen 325 mg Tablet 650 MG PO (03:11)
[2021-10-21 06:00] VITALS: BP 122/70; PULSE 74; RESP 15; O2SAT 99; BMI 21.7
[2021-10-21] MEDS: nicotine 2 mg Gum BUCCAL (06:40)
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
[2021-10-21 07:04] VITALS: BP 122/70; PULSE 74; RESP 15; TEMP 36.9; O2SAT 99
[2021-10-21] MEDS: fluoxetine 20 mg Capsule PO (08:43)
== END 2021-10-21 09:00 | disposition home or self-care (01) | DRG 918 ==
LOC: ER 15:30 → NP 10-19 08:06
PROVIDERS: Admitting Provider Psychiatry & Neurology Psychiatry; Emergency Provider Emergency Medicine; Visit Provider Psychiatry & Neurology Psychiatry
DX: T43.212A Poisoning by selective serotonin and norepinephrine reuptake inhibitors, intentional self-harm, initial encounter (principal); F33.2 Major depressive disorder, recurrent severe without psychotic features; R45.851 Suicidal ideations; F41.1 Generalized anxiety disorder; F17.210 Nicotine dependence, cigarettes, uncomplicated; F42.9 Obsessive-compulsive disorder, unspecified
CPT/HCPCS: 36416; 80048; 80306; 80307; 82962; 85025; 93005; 97150; 97165; 99285